=== PATIENT | female | born 1970 | race Caucasian/White ===

== ENCOUNTER 2024-07-22 11:49 | Outpatient (CLI) | payer MEDICARE, SELFPAY | END 2024-07-22 11:50 | disposition home or self-care (01) | LOC: AMB 07-24 12:36 | PROVIDERS: Visit Provider Internal Medicine | DX: S19.9XXA Unspecified injury of neck, initial encounter (principal); S99.921A Unspecified injury of right foot, initial encounter; W01.0XXA Fall on same level from slipping, tripping and stumbling without subsequent striking against object, initial encounter; Y92.480 Sidewalk as the place of occurrence of the external cause | CPT/HCPCS: A0998 ==